=== PATIENT | female | born 1995 | race Caucasian/White ===

== ENCOUNTER 2020-09-30 01:53 | Emergency (ER) | payer MEDICAID ==
[~2020-09-30] VITALS: Ht 152.4 cm; Wt 59.1 kg
[~2020-09-30 01:53] MED LIST: HYDR-3965 PO; NO HOME MEDS; PENI500T2 PO; TRAM50TA2 PO; ZOF4T PO
[2020-09-30 02:43] VITALS: BP 98/62
[2020-09-30] MEDS ORDERED: dexamethasone 4mg/ml inj PO STA (02:51)
[2020-09-30] MEDS ORDERED: penicillin G benzathine 1.2 million unit/2ml syringe IM STA (02:51)
[2020-09-30] MEDS ORDERED: ibuprofen 100 MG/5 ML oral susp PO ONE (02:55)
--- NOTE | 2020-09-30 03:15 | NUR ---
pt informed to call for help if she drools or not able to swallow
== END 2020-09-30 03:26 | disposition home or self-care (01) ==
LOC: ER 01:54
DX: J02.0 Streptococcal pharyngitis (principal); R51.9 Headache, unspecified; R50.9 Fever, unspecified; Z79.2 Long term (current) use of antibiotics; Z79.899 Other long term (current) drug therapy
CPT/HCPCS: 87880; 93005; 96372; 99284; J0561; J1100